=== PATIENT | female | born 1985 | race Caucasian/White ===

== ENCOUNTER 2020-09-21 10:40 | Emergency (ER) | payer OTHER ==
[2020-09-21] MEDS ORDERED: CYCLOBENZAPRINE10 MG PO (15:36)
[2020-09-21] MEDS ORDERED: NORCO 5-325 TA1 EACH PO (15:36)
[2020-09-21] MEDS ORDERED: PREDNISONE 20MG20 MG PO (15:36)
== END 2020-09-21 15:49 | disposition home or self-care (01) ==
LOC: FER 10:40
DX: S33.5XXA Sprain of ligaments of lumbar spine, initial encounter (principal); Z87.19 Personal history of other diseases of the digestive system; X58.XXXA Exposure to other specified factors, initial encounter
CPT/HCPCS: 72131; 96372; J1100; J1885; J2405